=== PATIENT | female | born 1985 | race Caucasian/White ===

== ENCOUNTER 2017-09-18 07:15 | Inpatient (IN) | payer OTHER ==
[~2017-09-18] VITALS: Ht 162.6 cm; Wt 68.9 kg
[2017-09-18] MEDS ORDERED: PRENATAL TABLE1 EAC2 PO (07:37)
== END 2017-09-20 15:47 | DRG 775 ==
LOC: LDR 07:15 → OB/GYN 07:15
PROC: 10E0XZZ Delivery of Products of Conception, External Approach (ICD-10-PCS; principal; 2017-09-18)
PROC: 3E0P7VZ Introduction of Hormone into Female Reproductive, Via Natural or Artificial Opening (ICD-10-PCS; 2017-09-18)
PROC: 4A1HXCZ Monitoring of Products of Conception, Cardiac Rate, External Approach (ICD-10-PCS; 2017-09-18)
PROC: 4A033R1 Measurement of Arterial Saturation, Peripheral, Percutaneous Approach (ICD-10-PCS; 2017-09-18)
DX: O48.0 Post-term pregnancy (principal); Z37.0 Single live birth; Z3A.40 40 weeks gestation of pregnancy; O99.820 Streptococcus B carrier state complicating pregnancy

== ENCOUNTER 2023-11-09 11:21 | Outpatient (CLI) | payer OTHER ==
[~2023-11-09 11:21] MED LIST: PRENATAL TABLE1 EAC2 PO
== END 2023-11-09 12:11 | disposition home or self-care (01) ==
LOC: NST 11:21
PROVIDERS: ATTEND Obstetrics & Gynecology Maternal & Fetal Medicine
DX: Z34.83 Encounter for supervision of other normal pregnancy, third trimester (principal)

== ENCOUNTER 2023-11-10 13:45 | Inpatient (IN) | payer OTHER ==
[~2023-11-10] VITALS: Ht 160 cm; Wt 68.0 kg
[2023-11-28 16:20] LABS: HEMATOCRIT 38.5 % (36.0-45.00); HEMOGLOBIN 13.1 g/dL (12.0-15.00); MEAN CELL VOLUME 84.8 fL (80.00-100.00); MEAN CORPUSCULAR HEMOGLOBIN 28.8 pg (27.00-32.0); MEAN CORPUSCULAR HGB CONC 33.9 g/dl (32.0-36.0); PLATELET COUNT 225 K/uL (150-450); RED BLOOD COUNT 4.54 M/uL (4.00-6.00)
[2023-11-28] MEDS ORDERED: PRENATAL TABLE1 EAC1 PO (16:23)
[2023-11-28] MEDS ORDERED: MORPHINE SULFATE 4 MG/ML CARTRIDGE IV PRN (16:30)
[2023-11-28 16:31] LABS: URINE APPEARANCE Clear; URINE BILIRRUBIN Negative (NEGATIVE); URINE BLOOD Negative; URINE COLOR Yellow; URINE GLUCOSE Negative (NEGATIVE); URINE LEUKOCYTE Negative; URINE NITRATE Negative; URINE PROTEIN Negative (NEGATIVE); URINE UROBILINOGEN 0.2 E.U./dl
[2023-11-28 16:32] LABS: URINE BACTERIA 69.2 uL (0.0-1933); URINE EPITHELIAL CELLS 13.7 uL (0.0-38.8); URINE RBC 5.7 uL (0.0-20.8); URINE WBC 2.4 uL (0.0-23.2)
[2023-11-28 16:41] LABS: INR < 0.93; PARTIAL THROMBOPLASTIN TIME 27.6 SECONDS (22.0-34.0); PROTHROMBIN TIME 9.7 SECONDS (9.0-11.5)
[2023-11-28 16:48] LABS: ALBUMIN 2.3 gm/dL (3.4-5.0); BILIRUBIN TOTAL 0.58 mg/dL (0.3-1.2); CALCIUM 8.5 mg/dL (8.5-10.1); CREATININE SERUM 0.64 mg/dL (0.55-1.02); GLOBULINA 3.6 G/DL (2.4-3.5); POTASSIUM 3.97 mEq/L (3.5-5.1); TOTAL PROTEIN 5.9 gm/dL (6.4-8.2)
[2023-11-28] MEDS ORDERED: CHLORHEXIDINE GLUCONATE 120 ML BOTTLE TOP ONE ×2 (19:53→22:15)
[2023-11-28] MEDS ORDERED: ERYTHROMYCIN BASE 1 GM TUBE OP ONE ×2 (19:53→22:15)
[2023-11-28] MEDS ORDERED: OXYTOCIN 20 UNITS/1000ML RL PIGGYBAG IV ONE (19:53)
[2023-11-28] MEDS ORDERED: LIDOCAINE HCL 1% 200MG/20ML VIAL IJ ONE (19:53)
[2023-11-28] MEDS ORDERED: OXYTOCIN 20 UNITS/500ML RL PIGGYBAG IV ONE (20:42)
[2023-11-28] MEDS ORDERED: OxyCODONE HCL/APAP UD (PERCOCET) PO PRN (21:15)
[2023-11-28] MEDS ORDERED: IBUprofen 400 MG TABLET PO PRN (21:15)
[2023-11-28] MEDS ORDERED: OXYTOCIN 1,000 ML IV SCH (21:15)
[2023-11-28] MEDS ORDERED: OXYTOCIN 500 ML IV ONE (22:15)
[2023-11-28] MEDS ORDERED: LIDOCAINE HCL 100 MG/10ML VIAL IJ ONE (22:15)
== END 2023-11-30 13:16 | DRG 807 ==
LOC: OB/GYN 11-25 13:45 → LDR 11-28 14:13 → OB/GYN 11-28 21:44
PROVIDERS: ADMIT Obstetrics & Gynecology; ATTEND Obstetrics & Gynecology
PROC: 10E0XZZ Delivery of Products of Conception, External Approach (ICD-10-PCS; principal; 2023-11-28)
PROC: 4A1HXCZ Monitoring of Products of Conception, Cardiac Rate, External Approach (ICD-10-PCS; 2023-11-28)
DX: O80 Encounter for full-term uncomplicated delivery (principal); Z37.0 Single live birth; Z3A.40 40 weeks gestation of pregnancy

== ENCOUNTER 2023-11-21 11:50 | Outpatient (CLI) | payer OTHER | END 2023-11-21 12:43 | disposition home or self-care (01) | LOC: NST 11:50 | PROVIDERS: ATTEND Obstetrics & Gynecology | DX: Z34.83 Encounter for supervision of other normal pregnancy, third trimester (principal) ==

== ENCOUNTER → 2023-11-24 | Outpatient (CLI) | payer OTHER | END | disposition home or self-care (01) | LOC: NST 14:36 | PROVIDERS: ATTEND Obstetrics & Gynecology Gynecology | DX: Z34.83 Encounter for supervision of other normal pregnancy, third trimester (principal) ==

== ENCOUNTER 2024-04-30 09:09 | Outpatient (CLI) | payer OTHER ==
[~2024-04-30 09:09] MED LIST changes: +PRENATAL TABLE1 EAC1 PO
== END 2024-04-30 09:27 | disposition home or self-care (01) ==
LOC: MAMO-SONO 09:09
PROVIDERS: ATTEND Obstetrics & Gynecology Gynecology
DX: N63 Unspecified lump in breast (principal); N64.4 Mastodynia; N63.21 Unspecified lump in the left breast, upper outer quadrant